=== PATIENT | female | born 1985 | race Caucasian/White ===

== ENCOUNTER → 2016-10-18 19:20 | Observation (INO) ==
--- NOTE | 2016-10-18 19:21 | OB/GYN Progress Note ---
Date of Encounter: 10/18/16 Time of Encounter: 19:15 - Assessment and Plan (1) care in third trimester Current Visit: Yes Status: Acute (2) 40 weeks gestation of Current Visit: Yes Status: Acute (3) False labor after 37 completed weeks of gestation Current Visit: Yes Status: Acute Labor precautions given will follow-up in the office Subjective - Subjective Interval history: She was a 31-year-old 3 para 2 at 40-0/7 weeks who presented to labor and delivery from the office for possible labor evaluation. Patient was seen for visit was told that she was 5-6 cm and has a history of GBS positive status. Patient has been complaining of occasional contractions being her third baby A wanted to send to labor and delivery for evaluation of labor and possible induction. Upon arrival to labor and delivery patient was adamant that she does not want any augmentation and did not want to be induced. States she had a bad outcome with her first delivery being induced and does not want to go through that again. The patient was not really goldie when she got here they were 7 at 10 minutes apart very irregular and she did not appear to be uncomfortable. We did have a discussion about possibly augmentation but again she declined patient was 4-5 cm on my examination but was ballotable. We did get the patient up and ambulate for 45 minutes to see if this would stimulate the contractions and then we reassessed her. Patient's contractions continued to remain irregular they were 7 minutes apart but she was not really feeling most of them. On reexamination patient had made no cervical change. She had asked if we would just rupture and see that will put her in labor did inform her with the head being ballotable and contractions are irregular it is not feasible and safe to do that we would need to give her contractions first before rupturing. Being group B strep positive she needs to doses of antibiotics for as apart before with rupture anyway and with her not wanting any augmentation I feel it is not in her best interest to just start antibiotics if she is not going to let us continue the induction process. She is very happy to go home in labor at home. Patient will call the office in the morning to schedule a follow-up appointment. Labor precautions have been given to the patient instructed to return if starts to get more uncomfortable. Antepartum ROS: contractions Objective - Vital Signs Vital Signs: Intake and Output 10/18/16 10/18/16 10/18/16 07:59 15:59 23:59 Other: Weight 66.2 kg Patient Weight 10/18/16 23:59 Weight 66.2 kg - Exam FHR: category 1 FHR comments: FHT's 140's reactive contractions every 7-10 min irregular. Abdomen: Present: normal appearance, gravid Uterus: Present: normal, firm Cervical dilation: 4-5cm Cervix effacement: 80 station: -2 ballotable
== END | disposition home or self-care (01) ==
LOC: 1NENULAB
PROVIDERS: ADMIT Obstetrics & Gynecology; ATTEND Obstetrics & Gynecology

== ENCOUNTER 2016-10-21 04:00 | Inpatient (IN) ==
[2016-10-21] MEDS ORDERED: Metoclopramide 10 MG/2 ML VIAL IVP PRN (04:34)
[2016-10-21] MEDS ORDERED: Famotidine 20 MG/2 ML VIAL IVP PRN (04:34)
[2016-10-21] MEDS ORDERED: Naloxone 0.4 MG/ML INJ IVP PRN (04:34)
[2016-10-21] MEDS ORDERED: D5% in Lactated Ringers 1,000 ML IVC SCH (04:45)
[2016-10-21 05:16] LABS: Basophils # 0.1 K/mcL (0.0-0.2); Basophils % 0.4 %; Eosinophils # 0.1 K/mcL (0.0-0.6); Eosinophils % 0.9 %; Hematocrit 35.8 % (35.3-44.9); Hemoglobin 11.8 g/dL (11.5-15.4); Immature Granulocytes % 2.3 % (0-4); Lymphocytes # 2.6 K/mcL (0.6-4.6); Lymphocytes % 18.6 %; Mean Corpuscular Hemoglobin 29.7 pg (28.0-33.3); Mean Corpuscular Volume 90.2 fL (83.0-100.0); Mean Platelet Volume 11.1 fL (9.4-12.4); Monocytes # 0.9 K/mcL (0.0-1.3); Monocytes % 6.3 %; Platelet Count 218 K/mcL (140-400); Red Blood Count 3.97 M/mcL (3.82-4.97); Red Cell Distribution Width 14.7 % (11.5-14.5); Segmented Neutrophils % 71.5 %
[2016-10-21] MEDS ORDERED: Vancomycin 1,000 MG in D5% in Water 250 ML IVPB SCH (06:00)
[2016-10-21] MEDS ORDERED: D5% in 0.45% NACL 1,000 ML IVC SCH (06:15)
--- NOTE | 2016-10-21 07:11 | OB/GYN History & Physical ---
Date of Encounter: 10/21/16 Time of Encounter: 07:05 Assessment and Plan (1) GBS (group B streptococcus) infection Current visit: Yes Status: Acute -Vanc started. Patient developed itching -Considered giving dose of Benadryl. However, patient states benadraly "knocks her out real bad" -Do not want to give at this time, with pending vaginal delivery -Patient feels like she can tolerate the itching Plan -If itching becomes unbarable, give low dose Benadryl. (2) 40 weeks gestation of Current visit: No Status: Acute -Consider induction with ROM, pitocin Plan -Continue toco monitor, cervix check -Cervix checks q 1h History of Present Illness Chief complaint: Induction HPI: Ms. Galvez is a 31 year old female,w 3d, , GBS positive c/c induction. In the office, with Dr. Magaña, patient was 6cm dilated. Patient feels contractions every 7 min or so. She desires to have a vaginal delivery and wait to have an epidural. Request epidural for last 2 uncomplicated vaginal deliveries. Denies smoking, drug use, alcohol use, or prescription drugs. Allergy to latex. Past Med Surg Social Fam HX - Past Medical History Medical history: kidney stones Psychiatric history: no psych history - Past Surgical History Surgical History: no surgical history - Social History Smoking Status: Never smoker Smokeless Tobacco Status: No Alcohol use: none Drug use: none - Family History Father Adopted: No Family Member Ethnicity: Non- Living Status: Still Living Hx Family Cardiac Disorders: Yes Hx Family Respiratory Disorders: No Hx Family Cancer: No Hx Family GI Disorders: No Hx Family Genitourinary Disorders: No Hx Family Endocrine Disorder: No Hx Family Musculoskeletal Disorders: No Hx Family Neuromuscular Disorders: No Hx Family Neurologic Disorders: No Hx Family HEENT Disorders: No Hx Family Autoimmune Disorders: No Hx Family Reproductive Disorders: No Hx Family Psychosocial Disorders: No Hx Family Medical Disorders: No Obstetrical History - Pregnancies : 3 Medications and Allergies Aspirin [Lo-Dose Aspirin EC] 1 tab PO DAILY 07/30/16 [History] Pnv with Ca,No.72/Iron,Carb/FA [ Plus Iron Tablet] 1 tab PO DAILY [History] Allergies latex Adverse Reaction (Verified 10/18/16 17:44) Rash Review of System OB - Cardiovascular Cardiovascular: no dyspnea, no palpitations - Respiratory Respiratory: no dyspnea, no hemoptysis, no wheezing - Gastrointestinal Gastrointestinal: no abdominal pain, no nausea - Integumentary Integumentary: other (Itching. Due to Vanc abx infusion. ) Exam - Constitutional Constitutional: well developed, well nourished, no acute distress, average body habitus - HEENT HEENT: Normocephaly, Mucus Membranes Moist - Lungs Respiratory exam: CTAB - Cardiovascular Cardiovascular exam: RRR - Abdomen Abdomen: Present: non tender Results Result Diagrams: 10/21/16 04:43 Abnormal lab results WBC 14.0 K/mcL (4.3-11.1) H 10/21/16 04:43 RDW 14.7 % (11.5-14.5) H 10/21/16 04:43 Neutrophils # 10.0 K/mcL (1.6-8.9) H 10/21/16 04:43 All other labs normal. - VTE Reasons for not Prescribing Prophylaxis: Treatment not Indicated - Low risk for VTE
[2016-10-21] MEDS ORDERED: Epidural Premix (fent/bupiv) 110 ML EP ONE (09:15)
--- NOTE | 2016-10-21 09:16 | OB/GYN Progress Note ---
Date of Encounter: 10/21/16 Time of Encounter: 09:14 - Assessment and Plan (1) 40 weeks gestation of Current Visit: Yes Status: Chronic Patient is requesting epidural. Will establish epidural prior to AROM. If needed , will augment with Pitocin. Continue routine monitoring. (2) GBS (group B streptococcus) infection Current Visit: Yes Status: Acute Continue vancomycin prophylaxis. Subjective - Subjective Interval history: Patient is requesting epidural prior to AROM. Otherwise no complaints. Objective - Vital Signs Vital Signs: Intake and Output 10/20/16 10/21/16 10/21/16 23:59 07:59 15:59 Other: Weight 65.771 kg Patient Weight 10/21/16 23:59 Weight 65.771 kg - Exam FHR: category 1 Auscultation: bilateral: normal Abdomen: Present: normal appearance, gravid Uterus: Present: normal Cervical dilation: 7-8 Cervix effacement: 80% station: -1 - Labs Labs: Abnormal lab results WBC 14.0 K/mcL (4.3-11.1) H 10/21/16 04:43 RDW 14.7 % (11.5-14.5) H 10/21/16 04:43 Neutrophils # 10.0 K/mcL (1.6-8.9) H 10/21/16 04:43
[2016-10-21] MEDS ORDERED: Ringers Solution, Lactated 1,000 ML ONE ×2 (09:22→09:57)
--- NOTE | 2016-10-21 10:11 | OB Labor Progress Note ---
Date of Encounter: 10/21/16 Time of Encounter: 10:09 Labor Progress Note - Subjective Subjective: Patient resting comfortable in bed with epidural in place. Patient denies any pain at this time. Discussed POC with patient. Patient denies any questions or concerns. - Cervix Cervix: 6.5/80/-1 - Heart Tones Heart Tones: 140 bpm moderate variability. +15x15 accels no decels noted. CAt. 1 tracing - Coupland Coupland: irregular - Interventions Interventions: SVE, AROM moderate amount of clear fluid. Patient tolerated well. - Plan Plan: Continue labor management.
--- NOTE | 2016-10-21 10:46 | Anesthesia Procedures ---
Date of Encounter: 10/21/16 Time of Encounter: 09:26 Procedures: Anesthesia - Epidural/Spinal Patient ID/Chart reviewed: Yes Patient examined: Yes OB Eval: Gestational age: term OB Eval: : 3 OB Eval: Hx Para: 2 OB Eval: Contractions: Non-stressed pattern Consent Obtained: Yes Site Prep: Aseptic Technique, Sterile prep and drape, 0.5% Chlorhexidine/Alcohol Patient position: upright Local Anesthetic: Lidocaine 1% Amount of Local Anesthetic used: 2 Touhy Needle Gauge: 18 Touhy Needle Depth (cm): 6 Catheter Depth at Skin (cm): 10 Test Dose (1.5% Lido + Epi): Volume given (mls): 3 Test Dose Result: Negative Loading Dose: Other: 12ml from solution Loading Dose Administered: Thru Catheter Infusion Med: 0.125% Bupivacaine w/ 2 mcg/ml Fentanyl Infusion Rate (mls/hr): [address]: Tegaderm, Tape Interspace Used: L3-L4 Loss of Resistance (NAYE): Yes (saline) Blood: No CSF: No Paresthesia: No Vitals + FHT's: vss though out, FHR stable though out per RN's
--- NOTE | 2016-10-21 10:48 | Anesthesia Evaluation PreOp ---
Date of Encounter: 10/21/16 Time of Encounter: 09:26 - Past History Planned Operation: vaginal del, Cardiac History: Denies any Significant Hx Pulmonary History: Denies Any Significant HX MOTOR COACH OPERATOR History: Denies Any Significant HX Other Medical History: Renal (kidney stones) Anesthesia History: No Prior Anesthetic Complications (one epidural in past with diff according to patient, no family Hx of problems), Past Anesthesia Alcohol Use: none Drug use: none Medications and Allergies Aspirin [Lo-Dose Aspirin EC] 1 tab PO DAILY 07/30/16 [History] Pnv with Ca,No.72/Iron,Carb/FA [ Plus Iron Tablet] 1 tab PO DAILY [History] Allergies latex Adverse Reaction (Verified 10/18/16 17:44) Rash Anesthesia Results - Labs 10/21/16 04:43 Anesthesia Exam - HEENT Pupil (Motor): Pupils equal Mallampati: II (TMD 5 cm.) Teeth: Normal Oral Opening: Greater than 3 - MOTOR COACH OPERATOR LOC: Oriented MOTOR COACH OPERATOR Motor: Normal RUE, Normal LUE, Normal RLE, Normal LLE, Normal Face MOTOR COACH OPERATOR Sensory: Normal: RUE, LUE, RLE, LLE, Face - Cardiac Rhythm: Regular Murmur: None - Pulmonary Breath Sounds: bilateral Clear Respiratory Effort: Symmetrical Anesthesia Assess/Plan ASA Score: 2 Modified Ruma Scale for Level of Consciousness: Cooperative, oriented, and tranquil Anesthetic Plan: General, Regional Monitoring Plan: Standard Monitors
--- NOTE | 2016-10-21 11:10 | OB Labor Progress Note ---
Date of Encounter: 10/21/16 Time of Encounter: 11:08 Labor Progress Note - Subjective Subjective: Patient comfortable with epidural. - Cervix Cervix: 7.5/80/-1 - Heart Tones Heart Tones: 135 bpm moderate variability +15x15 accels no decels noted. - Datto Datto: irregular - Interventions Interventions: SVE - Plan Plan: Will start Pitocin for augmentation to get a effective labor pattern established.
[2016-10-21] MEDS ORDERED: Oxytocin 20 units/ LR 1000 mL 20 UNIT/1,000 ML BAG IVC SCH (11:15)
--- NOTE | 2016-10-21 15:04 | OB/GYN Procedure Note ---
Delivery - Delivery Date: 10/21/16 Provider: Zachery Magaña Intrapartum events: none Delivery induction: AROM Delivery augmentation: rupture of membranes, pitocin Delivery monitor: external FHT, external uterine Anesthesia: epidural Estimated Blood Loss: 300 - Infant (s) A Delivery Date: 10/21/16 Delivery Time: 14:12 Presentation: vertex Position: DMITRY Route of delivery: Gender: Male Viability: Viable Pounds: 8 Ounces: 15 Weight Gram: 4.045 kg at 1 minute: 7 at 5 mins: 9 Shoulder Dystocia: not encountered Specimens collected: cord blood Placenta: spontaneous Cord: 3 umbilical vessels - Repair Episiotomy: none Laceration Description: None - Complications Delivery complications: none - Disposition Mom disposition: stable in LDR disposition: stable in LDR
[2016-10-21] MEDS ORDERED: Oxytocin 20 units/ LR 1000 mL 20 UNIT/1,000 ML BAG IVC ONE (15:29)
[2016-10-21] MEDS ORDERED: Oxytocin 20 units/ LR 1000 mL 20 UNIT/1,000 ML BAG IV SCH (15:29)
[2016-10-21] MEDS ORDERED: Measles/Mumps/Rubella Vacc 0.5 ML VIAL SQ PRN (15:29)
[2016-10-21] MEDS ORDERED: Acetaminophen 325 MG TABLET PO PRN (15:29)
[2016-10-21] MEDS ORDERED: Sennosides 8.6 MG TABLET PO PRN (15:29)
[2016-10-21] MEDS: Ibuprofen 600 MG TABLET PO PRN (20:18)
[2016-10-22] MEDS: Ibuprofen 600 MG TABLET PO PRN (04:22)
[2016-10-22 08:24] VITALS: BP 122/69
--- NOTE | 2016-10-22 08:28 | Discharge Summary ---
Date of Encounter: 10/22/16 Time of Encounter: 08:26 - Discharge Diagnosis (1) Vaginal delivery Priority: Primary Status: Acute Comments: Continue routine care discharge home today follow up with Dr. Magaña in 4-6 weeks (2) Breast feeding status of mother Priority: Secondary Status: Acute Comments: support prn - Discharge Medications Prescriptions: Ibuprofen [Motrin] 600 mg PO Q6HR PRN #60 tablet PRN Reason: Cramping Home Medications: Aspirin [Lo-Dose Aspirin EC] 1 tab PO DAILY 07/30/16 [History] Pnv with Ca,No.72/Iron,Carb/FA [ Plus Iron Tablet] 1 tab PO DAILY [History] Ibuprofen [Motrin] 600 mg PO Q6HR PRN #60 tablet 10/22/16 [Rx] Vit/FA 1 each PO DAILY tablet 10/22/16 [Rx] Allergies/Adverse Reactions: Allergies latex Adverse Reaction (Verified 10/18/16 17:44) Rash Data Procedures and tests throughout hospitalization: Laboratory Tests 10/21/16 04:43 WBC 14.0 H RBC 3.97 Hgb 11.8 Hct 35.8 MCV 90.2 MCH 29.7 MCHC 33.0 RDW 14.7 H Plt Count 218 MPV 11.1 Immature Gran % 2.3 Seg Neutrophils % 71.5 Lymphocytes % 18.6 Monocytes % 6.3 Eosinophils % 0.9 Basophils % 0.4 Neutrophils # 10.0 H Lymphocytes # 2.6 Monocytes # 0.9 Eosinophils # 0.1 Basophils # 0.1 Date of admission: 10/21/16 04:13 Primary care physician: John Rojas MD Consults: 10/21/16 15:29 Consult to [employer] Developer [CONS] Routine Comment: Vaginal delivery, consult needed Discharging clinician: Maria T Pimentel Anticipated date of discharge: 10/22/16 - Patient Status Disposition: Home, Self-Care Condition: Good Functional capacity at discharge: independent ambulation - Discharge Instructions Follow Up With: John Rojas MD [Primary Care Provider] - Zachery Magaña MD [Partnered Physician] - - Diet and Activity Activity: increase activity as tolerated Diet: regular diet Hospital Course Reason for admission: induction of labor Delivery: Episiotomy: none Laceration: none Other procedures: none complications: none Discharge diagnosis: IUP at term delivered [place] baby: male (breast feeding) Time Attestation: Total time spent providing and/or coordinating discharge services: Time Spent: Less than 30 minutes Exam - Constitutional Vitals: Temp Pulse Resp BP Pulse Ox 97.8 F 93 16 122/69 100 10/22/16 08:23 10/22/16 08:23 10/22/16 08:23 10/22/16 08:23 10/22/16 04:37 General appearance IM: A&O X 3, pleasant, answers questions appropriately - Respiratory Respiratory exam: Present: CTAB - Cardiovascular Cardiovascular exam IM: Present: RRR, +S1, +S2 - GI/Abdominal GI/Abdominal exam IM: normal bowel sounds - Uterine Tone: Firm Uterus Position: At Umbilicus, Midline - Extremities Exam Extremities exam IM: Present: full ROM, normal capillary refill, normal inspection - Neurological Exam Neurological exam: alert, oriented X3, reflexes normal
[2016-10-22] MEDS ORDERED: Prenatal Vit/FA 1 EACH TABLET PO SCH (09:00)
[2016-10-22] MEDS ORDERED: [UNRECOGNIZED DRUG - REMARK] PO SCH (09:00)
[2016-10-22 09:12] LABS: Basophils # 0.1 K/mcL (0.0-0.2); Basophils % 0.4 %; Eosinophils # 0.2 K/mcL (0.0-0.6); Eosinophils % 1.1 %; Hematocrit 33.8 % (35.3-44.9); Hemoglobin 11.1 g/dL (11.5-15.4); Immature Granulocytes % 1.3 % (0-4); Lymphocytes % 12.4 %; Mean Corpuscular HGB Conc 32.8 g/dL (31.6-35.5); Mean Corpuscular Volume 91.4 fL (83.0-100.0); Mean Platelet Volume 11.4 fL (9.4-12.4); Monocytes # 1.1 K/mcL (0.0-1.3); Monocytes % 6.7 %; Neutrophils # 12.3 K/mcL (1.6-8.9); Platelet Count 202 K/mcL (140-400); Red Cell Distribution Width 14.8 % (11.5-14.5); Segmented Neutrophils % 78.1 %
[2016-10-22] MEDS ORDERED: Aminoglycoside Consult 1 EACH MC ONE (17:20)
== END 2016-10-22 17:21 | disposition home or self-care (01) | DRG 775 ==
LOC: 1NENULAB 04:13 → 1NENUOBS 16:39
PROVIDERS: ADMIT Obstetrics & Gynecology; ATTEND Obstetrics & Gynecology